=== PATIENT | female | born 1985 | race Caucasian/White ===

== ENCOUNTER 2020-07-08 19:38 | Emergency (ER) | payer SELFPAY ==
[2020-07-08 19:59] VITALS: TEMP 98.4; BMI 26.6
[2020-07-08] MEDS ORDERED: ACETAMINOPHEN 500 MG TABLET (FP) PO ONE (20:24)
[2020-07-08] MEDS ORDERED: LIDOCAINE 5% TOPICAL PATCH TP ONE (20:24)
[2020-07-08] MEDS ORDERED: CYCLOBENZAPRINE HCL 10 MG TABLET (FP) PO ONE (20:40)
[2020-07-08] MEDS ORDERED: LIDOCAINE 5% TOPICAL PATCH ONE (20:47)
[2020-07-08] MEDS ORDERED: ACETAMINOPHEN 500 MG TABLET (FP) ONE (20:49)
[2020-07-08] MEDS ORDERED: CYCLOBENZAPRINE HCL 10 MG TABLET (FP) ONE (21:36)
[2020-07-08] MEDS ORDERED: LIDOCAINE PATCH REMOVAL MC SCH (22:00)
[2020-07-09 01:35] VITALS: BP 110/78; PULSE 90
[2020-07-09 01:43] LABS: EPI CELLS >36 /uL (0-25.1); HYALINE CASTS 6 /uL (0-3.1); URINE APPEARANCE CLOUDY; URINE BACTERIA 1669 /uL (0-1359); URINE BILIRUBIN NEGATIVE (NEGATIVE); URINE COLOR DK YELLOW; URINE GLUCOSE (UA) NEGATIVE (NEGATIVE); URINE KETONE 2+ (NEGATIVE); URINE LEUK ESTERASE NEGATIVE (NEGATIVE); URINE NITRITE NEGATIVE (NEGATIVE); URINE PROTEIN 1+ (NEGATIVE); URINE RBC 10 /uL (0-23.9); URINE WBC 51 /uL (0-25.8)
== END 2020-07-09 01:51 | disposition home or self-care (01) ==
LOC: JER 19:38
DX: M54.5 Low back pain (principal)
CPT/HCPCS: 76815-TC; 81003; 87086; 99285-25